=== PATIENT | male | born 1950 | race Caucasian/White ===

== ENCOUNTER 2018-07-15 18:12 | Observation (INO) | payer BC, MEDICARE, OTHER ==
[~2018-07-15] VITALS: Ht 165.1 cm; Wt 102.1 kg
[2018-07-15 19:30] VITALS: BP 173/82
--- NOTE | 2018-07-15 19:30 | NUR ---
SANDEEP PUENTE admitted to room 429-1, with an admitting diagnosis of SBO, on 07/15/18 from [facility] via [facility], accompanied by EMS.SANDEEP PUENTE introduced to surroundings, call light, bed controls, phone, TV, temperature control, lights, meal times, smoking policy, visitor policy, side rail policy, bathrooms and showers. Patient Rights given to patient in the handbook. SANDEEP PUENTE verbalizes understanding that [facility] is not responsible for the loss or damage to any personal effects or valuables that are kept in the patients posession during their hospitalization.
--- NOTE | 2018-07-15 19:50 | NUR ---
DR. HERRERA CALLED AND INFORMED DA IS ON FLOOR. NEW ORDERS RECEIVED.
[2018-07-15] MEDS ORDERED: ONDANSETRON 4 MG/2 ML (SDV) Z0FRAN IVP PRN (20:00)
--- NOTE | 2018-07-15 20:00 | NUR ---
DR. AZUL CALLED AND INFORMED OF PT B/P. NO NEW ORDERS.
[2018-07-15] MEDS: LACTATED RINGERS 1,000 ML IV SCH (20:34)
[2018-07-15] MEDS: morphine INJ 4 MG/ML 1 ML (VIAL/SYRINGE) IVP PRN ×2 (20:34→23:52)
[2018-07-15 23:06] VITALS: BP 173/82
[2018-07-16] VITALS: BP 150/69
[2018-07-16 04:00] VITALS: BP 125/62
[2018-07-16] MEDS: LACTATED RINGERS 1,000 ML IV SCH ×3 (04:34→20:05)
[2018-07-16 05:46] LABS: BASOPHILS # (AUTO) 0.1 10^3/uL (0.0-0.1); BASOPHILS % (AUTO) 1 % (0-10); EOSINOPHILS # (AUTO) 0.2 10^3/uL (0.0-0.3); EOSINOPHILS % (AUTO) 2 % (0-10); HEMATOCRIT 38 % (40-54); HEMOGLOBIN 12.8 G/DL (13.3-17.7); LYMPHOCYTES # (AUTO) 2.3 X 10^3 (1.0-4.0); LYMPHOCYTES % (AUTO) 30 % (12-44); MEAN CORPUSCULAR HEMOGLOBIN 30 PG (25-34); MEAN CORPUSCULAR HGB CONC 34 G/DL (32-36); MEAN CORPUSCULAR VOLUME 90 FL (80-99); MEAN PLATELET VOLUME 10.3 FL (7.4-10.4); MONOCYTES # (AUTO) 0.8 X 10^3 (0.0-1.0); MONOCYTES % (AUTO) 11 % (0-12); NEUTROPHILS # (AUTO) 4.2 X 10^3 (1.8-7.8); NEUTROPHILS % (AUTO) 56 % (42-75); PLATELET COUNT 310 10^3/uL (130-400); RED CELL DISTRIBUTION WIDTH 13.2 % (10.0-14.5); WHITE BLOOD COUNT 7.6 10^3/uL (4.3-11.0)
[2018-07-16 06:09] LABS: BUN/CREATININE RATIO 12; CALCIUM 9.4 MG/DL (8.5-10.1); CARBON DIOXIDE 25 MMOL/L (21-32); CHLORIDE 105 MMOL/L (98-107); CREATININE SERUM 0.75 MG/DL (0.60-1.30); GFR ESTIMATED > 60; GLUCOSE 95 MG/DL (70-105); POTASSIUM 3.6 MMOL/L (3.6-5.0); SODIUM 140 MMOL/L (135-145)
[2018-07-16 08:00] VITALS: BP 140/63
--- NOTE | 2018-07-16 08:05 | NUR ---
MS 2MG IV FOR ABD PAIN 11/11.
[2018-07-16] MEDS: morphine INJ 4 MG/ML 1 ML (VIAL/SYRINGE) IVP PRN ×2 (08:08→22:53)
--- NOTE | 2018-07-16 08:42 | History & Physical-Surgical ---
History of Present Illness History of Present Illness Reason for visit/HPI CC: high blood pressure abdominal pain Patient is a 68-year-old male with history of gastric bypass who was checking his blood pressure approximately every 30 minutes and was found it to be elevated. Patient went to the [place] emergency department for further evaluation because of this. Patient was concerned about his blood pressure was primary concern but he also is having some left lower quadrant abdominal pain. Patient states she's been having it for about the last day or so aching twisting type pain that he states that it is approximately 8 out of 10. No radiation of the pain. Patient states that he gets the same pain on and off for several years and he states that he attributes it to IBS. Patient states that he does have issues with constipation and bowel movements therefore he tries to stay as active as possible both biking and walking. With his gastric bypass he had approximately 10 years ago he's lost 100 pounds initially and has gained back approximately 20 pounds. Patient states that nothing was seems to make the pain worsening. Nothing was seems to make better except for the ambulating. patient states that he is passing a very small amount of flatus. Last bowel movement was in the day. Patient had a CT scan back on his hospital which was suggestive of partial small bowel obstruction without evidence of transition point. Patient was sent here for further surgical evaluation.he currently denies any nausea vomiting fever sweats chills shortness of breath or chest pain. Date of Admission Jul 15, 2018 at 19:40 Date Seen by a Provider: Jul 16, 2018 Time Seen by a Provider: 08:22 I consulted on this patient on 07/16/18 08:42 Attending Physician Lois Aj DO Admitting Physician Jania Ingram MD Consult Allergies and Home Medications Allergies Coded Allergies: Influenza Virus Vaccines (Verified Allergy, Unknown, 07/15/18) NSAIDS (Non-Steroidal Anti-Inflamma (Verified Allergy, Unknown, 07/15/18) Penicillins (Verified Allergy, Unknown, 07/15/18) Sulfa (Sulfonamide Antibiotics) (Verified Allergy, Unknown, 07/15/18) metronidazole (Verified Allergy, Unknown, 07/15/18) tetracycline (Verified Allergy, Unknown, 07/15/18) Home Medications Amlodipine Besylate 10 Mg Tablet, 5 MG PO HS, (Reported) TAKES 1/2 (10MG) TABLET Amlodipine Besylate 10 Mg Tablet, 5 MG PO BID PRN for BP>140/90, (Reported) Atorvastatin Calcium 20 Mg Tablet, 10 MG PO HS, (Reported) TAKES 1/2 (20MG) TABLET Calcium Citrate/Vitamin D3 1 Each Tablet, 1 TAB PO 1200, (Reported) Cetirizine HCl 10 Mg Tablet, 10 MG PO DAILY, (Reported) Cyanocobalamin (Vitamin B-12) 500 Mcg Tablet, 500 MCG PO DAILY, (Reported) Dicyclomine HCl 10 Mg Capsule, 10 MG PO QID, (Reported) Finasteride 5 Mg Tablet, 2.5 MG PO HS, (Reported) TAKES 1/2 (5MG) TABLET Flaxseed Oil 1,000 Mg Capsule, 1,000 MG PO HS, (Reported) Fluticasone Propionate 16 Gm [place].susp, 2 SPRAYS NS DAILY, (Reported) L.acidoph & Paracasei,B.lactis 1 Each Capsule, 1 CAP PO 1200, (Reported) Lisinopril 20 Mg Tablet, 20 MG PO DAILY, (Reported) Lisinopril 20 Mg Tablet, 10 MG PO HS, (Reported) TAKES 1/2 (20MG) TABLET Mv,Minerals/FA/Lycopene/Ginkgo 1 Each Tablet, 0.5 TAB PO 0800,1200, (Reported) Omeprazole 20 Mg Capsule.dr, 20 MG PO HS, (Reported) Ranitidine HCl 150 Mg Tablet, 150 MG PO DAILY, (Reported) [place] Oil/[place]-3 Fatty Acids 1 Each Capsule, 1,000 MG PO 1200, (Reported) Tamsulosin HCl 0.4 Mg Cap, 0.4 MG PO 1200, (Reported) Triamterene/Hydrochlorothiazid 1 Each Tablet, 1 TAB PO DAILY, (Reported) Vitamin E Mixed 400 Unit Tablet, 400 UNIT PO DAILY, (Reported) [Bariatric Vitamin] , 1 TAB PO HS, (Reported) Patient Home Medication List Home Medication List Reviewed: Yes Past Ynarnnp-Ogdaoh-Iwfgvx Hx Patient Social History Alcohol Use: Occasionally Uses Number of Drinks Today: 7 Recreational Drug Use: No Recent Foreign Travel: No Contact w/Someone Who Travel: No Recent Infectious Disease Expo: No Recent Hopitalizations: No Physical Abuse Screen: No Sexual Abuse: No Immunizations Up To Date Date of Pneumonia Vaccine: Feb 14, 2018 Seasonal Allergies Seasonal Allergies: No Surgeries History of Surgeries: Yes (GASTRIC BYPASS) Respiratory History of Respiratory Disorde: No Cardiovascular History of Cardiac Disorders: Yes Neurological History of Neurological Disord: No Reproductive System Sexually Transmitted Disease: No HIV/AIDS: No Genitourinary History of Genitourinary Disor: Yes Genitourinary Disorders: Benign Prostatic Hyperpl Gastrointestinal History of Gastrointestinal Di: Yes Gastrointestinal Disorders: Gastroesophageal Reflux, Diverticulosis, Irritable Bowel Musculoskeletal History of Musculoskeletal Dis: Yes Musculoskeletal Disorders: Arthritis Endocrine History of Endocrine Disorders: No HEENT History of HEENT Disorders: Yes Hearing Impairment: Hard of Hearing Cancer History of Cancer: No Psychosocial History of Psychiatric Problem: Yes Behavioral Health Disorders: Anxiety Integumentary History of Skin or Integumenta: No Blood Transfusions History of Blood Disorders: No Adverse Reaction to a Blood Tr: No Family Medical History Significant Family History: No Pertinent Family Hx Review of Systems Constitutional: no symptoms reported EENTM: no symptoms reported Respiratory: no symptoms reported Cardiovascular: no symptoms reported Gastrointestinal: see HPI Genitourinary: no symptoms reported Musculoskeletal: no symptoms reported Skin: no symptoms reported Psychiatric/Neurological: No Symptoms Reported Physical Exam Vital Signs Vital Signs - First Documented 07/15/18 19:30 Temp 97.4 Pulse 81 Resp 18 B/P (MAP) 173/82 (112) Pulse Ox 96 O2 Delivery Room Air Capillary Refill : Less Than 3 Seconds Height, Weight, BMI Height: 5'5.00" Weight: 225lbs. 0.0oz. 102.334265pi; 37.4 BMI Method: General Appearance: No Apparent Distress HEENT: PERRL/EOMI, Normal ENT Inspection Neck: Full Range of Motion, Normal Inspection, Non Tender, Supple Respiratory: Chest Non Tender, No Accessory Muscle Use, No Respiratory Distress Cardiovascular: Regular Rate, Rhythm Gastrointestinal: Soft, Tenderness (minimal tenderness left lower quadrant no palpable masses) Rectal: Deferred Back: Normal Inspection, No CVA Tenderness Extremity: Normal Inspection, Non Tender, No Calf Tenderness Neurologic/Psychiatric: Alert, Oriented x3, No Motor/Sensory Deficits, Normal Mood/Affect, emergency department director II-XII Norm as Tested Skin: Normal Color, Warm/Dry Lymphatic: No Adenopathy Data Review Labs Laboratory Tests 07/16/18 05:05: White Blood Count 7.6, Red Blood Count 4.23L, Hemoglobin 12.8L, Hematocrit 38L, Mean Corpuscular Volume 90, Mean Corpuscular Hemoglobin 30, Mean Corpuscular Hemoglobin Concent 34, Red Cell Distribution Width 13.2, Platelet Count 310, Mean Platelet Volume 10.3, Neutrophils (%) (Auto) 56, Lymphocytes (%) (Auto) 30 , Monocytes (%) (Auto) 11, Eosinophils (%) (Auto) 2, Basophils (%) (Auto) 1, Neutrophils # (Auto) 4.2, Lymphocytes # (Auto) 2.3, Monocytes # (Auto) 0.8, Eosinophils # (Auto) 0.2, Basophils # (Auto) 0.1, Sodium Level 140, Potassium Level 3.6, Chloride Level 105, Carbon Dioxide Level 25, Anion Gap 10, Blood Urea Nitrogen 9, Creatinine 0.75, Estimat Glomerular Filtration Rate > 60, BUN/ Creatinine Ratio 12, Glucose Level 95, Calcium Level 9.4 Assessment/Plan Assessment/Plan Admission Diagonsis Left lower quadrant abdominal pain Partial small bowel obstruction Hypertension History of gastric bypass Patient is a 68-year-old male who suffered further surgical evaluation. And patient has been more hypertensive than usual for him. We'll consult Dr. Samuel for medical management. Patient nothing by mouth and having small bowel follow-through this morning for further evaluation of partial small bowel obstruction Small bowel follow-through this morning. Small bowel follow-through was performed not demonstrating any evidence obstruction. We'll start on clear liquids and see how he tolerates. If continues to improve we'll plan on likely discharge home tomorrow. Admission Status: Observation Assessment/Plan Left lower quadrant abdominal pain Partial small bowel obstruction Hypertension History of gastric bypass Patient is a 68-year-old male who suffered further surgical evaluation. And patient has been more hypertensive than usual for him. We'll consult Dr. Samuel for medical management. Patient nothing by mouth and having small bowel follow-through this morning for further evaluation of partial small bowel obstruction Small bowel follow-through this morning. Small bowel follow-through was performed not demonstrating any evidence obstruction. We'll start on clear liquids and see how he tolerates. If continues to improve we'll plan on likely discharge home tomorrow. Clinical Quality Measures DVT/VTE Risk/Contraindication: Risk Factor Score Per Nursin RFS Level Per Nursing on Admit: 3=High LOIS AJ DO Jul 16, 2018 08:42
[2018-07-16] MEDS ORDERED: OMEP20CA12 PO (08:54)
[2018-07-16] MEDS ORDERED: FINA5TAB6 PO (08:54)
[2018-07-16] MEDS ORDERED: MV,M1TAB4 PO (08:54)
[2018-07-16] MEDS ORDERED: ATOR20TA66 PO (08:54)
[2018-07-16] MEDS ORDERED: AMLO10TA7 PO ×2 (08:54)
[2018-07-16] MEDS ORDERED: SALM1CAP4 PO (08:54)
[2018-07-16] MEDS ORDERED: CALC-787 PO (08:54)
[2018-07-16] MEDS ORDERED: VITA400T9 PO (08:54)
[2018-07-16] MEDS ORDERED: TAMS0.4C98 PO (08:54)
[2018-07-16] MEDS ORDERED: FLAX10004 PO (08:54)
[2018-07-16] MEDS ORDERED: FLUT16SP22 NS (08:54)
[2018-07-16] MEDS ORDERED: TRIA1TAB3 PO (08:54)
[2018-07-16] MEDS ORDERED: BARIATRIC VITAMIN PO (08:54)
[2018-07-16] MEDS ORDERED: RANI150T11 PO (08:54)
[2018-07-16] MEDS ORDERED: L.AC1CAP6 PO (08:54)
[2018-07-16] MEDS ORDERED: CETI10TA20 PO (08:54)
[2018-07-16] MEDS ORDERED: LISI-552 PO ×2 (08:54)
[2018-07-16] MEDS ORDERED: DICY10CA12 PO (08:54)
[2018-07-16] MEDS ORDERED: CYAN500T2 PO (08:54)
--- NOTE | 2018-07-16 08:58 | NUR ---
SPOKE WITH THE PATIENT ABOUT HIS MEDICATIONS. HE HAD A DETAILED LIST WITH HIM AND I COMPARED WITH THE EXT MED HX. HIS FINASTERIDE 5MG IS WRITTEN 1 DAILY HOWEVER HE TAKES 1/2 TAB HS. HIS OMEPRAZOLE IS WRITTEN BID HOWEVER HE TAKES ONE AT HS HIS RANITIDINE IS WRITTEN BID HOWEVER HE TAKES ONE EVERY MORNING HE TAKES THE FOLLOWING OTC: BARIATRIC VITAMIN HS CALCIUM CITRATE NOON ZYRTEC 10MG DAILY B12 DAILY FLAXSEED OIL HS PROBIOTIC NOON MTV 1/2 BID SALMON OIL NOON VITAMIN E DAILY
[2018-07-16] MEDS ORDERED: DIATRIZOATE MEGLUM/SODIUM 37% 120 ML (GASTROGRAFIN) PO ONE (09:45)
[2018-07-16 12:00] VITALS: BP 172/88
--- NOTE | 2018-07-16 12:35 | Diagnostic Imaging Report ---
INDICATION: Outside CT one day earlier demonstrating small bowel obstruction. Study is performed for further evaluation. CORRELATION is made with outside CT from 07/15/2018 TECHNIQUE: The patient drank 120 mL of Gastroview contrast mixed with 120 mL of water and serial radiography of the abdomen was performed. FINDINGS: Preliminary radiograph of the abdomen shows mildly prominent small bowel loops in the left upper quadrant. These are nonspecific. Initial radiograph demonstrates postop changes of gastric bypass. The residual stomach is small in size. There is prompt emptying into small bowel loops. There appears to be normal transit of contrast through the small bowel to the right colon. Contrast is seen reaching the right colon at approximately 1 hour, 30 minutes. No obstruction is identified. Mucosal fold pattern is unremarkable. IMPRESSION: No evidence of small bowel obstruction. Dictated by: Dictated on workstation # [id number]
[2018-07-16] MEDS ORDERED: ENALAPRILAT 2.5 MG/2 ML (VASOTEC) VIAL IV PRN (13:00)
--- NOTE | 2018-07-16 13:15 | NUR ---
VASOTEC IV FOR ELEVATED B/P. CLEAR LIQUIDS STARTED PER PT REQUEST.
--- NOTE | 2018-07-16 13:44 | Consultation-Hospitalist ---
HPI History of Present Illness: HPI/Chief Complaint Pt is a 68yoCM with a PMH of gastric bypass, BPH, and HTN who presented to outside ER for evaluation of elevated blood pressure and was incidentally found to have SBO on CT Abd. He is admitted for surgical services and I am consulted for medical management. He reports he was checking his blood pressure at home roughly every 30 minutes because it was reading the 150s systolically. He took he prn amlodipine but it remained in the 150s. He states he was worried he was going to have a stroke because Magdi Ray just of a massive stroke so he presented to the ER for evaluation. He also complained of some left sided abdominal pain and a CT abd was done and revealed an SBO. He was admitted here for surgical evaluation. Source: patient Exam Limitations: no limitations Date Seen 07/16/18 Attending Physician Akash Aj DO PCP Jania Ingram MD Referring Physician Date of Admission Jul 15, 2018 at 19:40 Home Medications & Allergies Home Medications Reviewed patient Home Medication Reconciliation performed by pharmacy medication reconciliations restoration technician and/or nursing. Patients Allergies have been reviewed. Allergies Allergies Coded Allergies Influenza Virus Vaccines (Verified Allergy, Unknown, 07/15/18) NSAIDS (Non-Steroidal Anti-Inflamma (Verified Allergy, Unknown, 07/15/18) Penicillins (Verified Allergy, Unknown, 07/15/18) Sulfa (Sulfonamide Antibiotics) (Verified Allergy, Unknown, 07/15/18) metronidazole (Verified Allergy, Unknown, 07/15/18) tetracycline (Verified Allergy, Unknown, 07/15/18) Past Bmtqyas-Rmcfzc-Yvfoyt Hx Past Med/Social Hx: Reviewed Nursing Past Med/Soc Hx Patient Social History Alcohol Use: Occasionally Uses Alcohol Beverage of Choice: Beer Recreational Drug Use: No Physical Abuse Screen: No Sexual Abuse: No Recent Foreign Travel: No Contact w/other who traveled: No Recent Hopitalizations: No Recent Infectious Disease Expo: No Immunizations Up To Date Date of Pneumonia Vaccine: Feb 14, 2018 Seasonal Allergies Seasonal Allergies: No Past Medical History Surgeries: Abdominal (gastric bypass) Cardiac: Hypertension Sexually Transmitted Disease: No HIV/AIDS: No Genitourinary: Benign Prostatic Hyperpl Gastrointestinal: Gastroesophageal Reflux, Diverticulosis, Irritable Bowel Musculoskeletal: Arthritis Hearing Impairment: Hard of Hearing Psychosocial: Anxiety History of Blood Disorders: No Adverse Reaction to Blood Curry: No Family History Reviewed Nursing Family Hx No Pertinent Family Hx Review of Systems Constitutional: No chills, No fever Respiratory: No dyspnea on exertion, No short of breath Gastrointestinal: abdominal pain, diarrhea Genitourinary: no symptoms reported Musculoskeletal: no symptoms reported Skin: no symptoms reported Psychiatric/Neurological: Denies Headache, Denies Weakness Physical Exam Physical Exam Vital Signs Vital Signs - First Documented 07/15/18 19:30 Temp 97.4 Pulse 81 Resp 18 B/P (MAP) 173/82 (112) Pulse Ox 96 O2 Delivery Room Air Capillary Refill : Less Than 3 Seconds Height, Weight, BMI Height: 5'5.00" Weight: 225lbs. 0.0oz. 102.285609ph; 37.4 BMI Method: General Appearance: No Apparent Distress, WD/WN, Obese Respiratory: Lungs Clear, No Accessory Muscle Use, No Respiratory Distress Cardiovascular: Regular Rate, Rhythm, No Murmur Gastrointestinal: Normal Bowel Sounds, Non Tender, Soft Extremity: No Calf Tenderness, No Pedal Edema Neurologic/Psychiatric: Alert, Oriented x3, Normal Mood/Affect Results Results/Procedures Labs Laboratory Tests 07/16/18 05:05 Patient resulted labs reviewed. Imaging: Reviewed Imaging Report Assessment/Plan Assessment and Plan Assess & Plan/Chief Complaint SBO Diagnosis/Problems Diagnosis/Problems (1) Small bowel obstruction Assessment & Plan: Management per Surgery Small bowel follow through done- results pending Advanced to [facility] today (2) Essential (primary) hypertension Assessment & Plan: BP mildly elevated this AM Will give Vasotec IV x1 Resume home medications Advised to check less often than every 30 minutes when home Stable for DC from medical standpoint Clinical Quality Measures DVT/VTE Risk/Contraindication: Risk Factor Score Per Nursin RFS Level Per Nursing on Admit: 3=High ARIANA FINN MD Jul 16, 2018 13:44
[2018-07-16 16:02] VITALS: BP 169/90
[2018-07-16] MEDS: DICYCLOMINE 10 MG (BENTYL) CAP PO SCH ×2 (17:10→20:06)
[2018-07-16 20:25] VITALS: BP 140/92
[2018-07-16] MEDS ORDERED: lisINopril 10 MG (PRINIVIL) TABLET PO SCH (21:00)
[2018-07-16] MEDS ORDERED: amLODIPine 5 MG (NORVASC) TAB PO SCH (21:00)
[2018-07-16] MEDS ORDERED: ATORVASTATIN 10 MG (LIPITOR) TABLET PO SCH (21:00)
[2018-07-16] MEDS ORDERED: FINASTERIDE (PROSCAR) 5 MG TAB PO SCH (21:00)
[2018-07-16] MEDS ORDERED: PANTOPRAZOLE 20 MG TABLET (PROTONIX) PO SCH (21:00)
[2018-07-17 00:16] VITALS: BP 163/85
[2018-07-17] MEDS: LACTATED RINGERS 1,000 ML IV SCH (04:04)
[2018-07-17] MEDS: morphine INJ 4 MG/ML 1 ML (VIAL/SYRINGE) IVP PRN (04:18)
[2018-07-17 04:30] VITALS: BP 158/82
[2018-07-17 08:00] VITALS: BP 160/78
[2018-07-17] MEDS: DICYCLOMINE 10 MG (BENTYL) CAP PO SCH ×2 (08:49→13:43)
[2018-07-17] MEDS ORDERED: TRIAMTERENE/HCTZ 75-50 (MAXZIDE,DYAZIDE) TABLET PO SCH (09:00)
[2018-07-17] MEDS ORDERED: LORATADINE (CLARITIN) 10 MG TAB PO SCH (09:00)
[2018-07-17] MEDS ORDERED: FLUTICASONE NASAL SPRAY (FLONASE) 16 GM BTL NS SCH (09:00)
[2018-07-17] MEDS ORDERED: lisINopril 20 MG (PRINIVIL) TABLET PO SCH (09:00)
[2018-07-17] MEDS ORDERED: FAMOTIDINE 20 MG (PEPCID) TABLET PO SCH (09:00)
[2018-07-17] MEDS ORDERED: TAMSULOSIN 0.4 MG (FLOMAX) CAP PO SCH (12:00)
--- NOTE | 2018-07-17 12:07 | Discharge Inst-Simple/Standard ---
Discharge Inst-Standard Discharge Medications New, Converted or Re-Newed RX: RX on Chart Patient Instructions/Follow Up Plan of Care/Instructions/FU: Follow up with your regular physician in 1 week. Follow up with Dr. Aj on as needed basis. Activity as Tolerated: Yes Discharge Diet: Regular Diet Other Inst to Patient Follow up Appt: Make appointment for 1 week with you regular physician. Follow up with Dr. Aj on as needed basis. Symptoms to Report: Appetite Changes, Extremity Discoloration, Numbness/Tingling, Swelling Increased , Bleeding Excessive, Eyesight Changes, Pain Increased, Urine Color Change, Constipation(Persistent), Fever over 101 degree F, Pain/Pressure in chest, Urinating Difficulty, Cough Up/Vomit Blood, Heart Beat Irreg/Pounding, Pain/ Pressure in jaw, Vaginal Bleeding Increase, Cramps in feet or legs, Lightheadedness, Pain/Pressure in shoulder, Diarrhea(Persistent), Memory Changes Suddenly, Questions/Concerns, Weight gain consecutive days, Dizziness/ Fainting, Nausea/Vomiting, Shortness of Breath, Weight gain over 2 pounds If questions or concerns contact your physician Or seek help at emergency department. LOIS AJ DO Jul 17, 2018 12:07
--- NOTE | 2018-07-17 13:44 | NUR ---
SANDEEP PUENTE demonstrates understanding of discharge instructions and accurately returns instructions upon questioning. Copy of Post-Discharge Instructions given to pt. SANDEEP PUENTE is able to manage continuing needs after discharge. Patients belongings returned to . Patient discharged from [facility] on 07-17-18 at 1445. SANDEEP PUENTE left floor via , accompanied by .
--- NOTE | 2018-07-17 16:14 | Progress Note ---
Subjective Date Seen by a Provider: Jul 17, 2018 Time Seen by a Provider: 09:40 Subjective/Events-last exam patient not having any abdominal pain. Had multiple bowel movements. Patient tolerating liquid diet. Patient not having any nausea vomiting fever sweats chills shortness of breath or chest pain. Small bowel follow through no evidence of any obstruction. Objective Exam Vital Signs Date Time Temp Pulse Resp B/P (MAP) Pulse Ox O2 Delivery O2 Flow Rate FiO2 07/17/18 08:00 Room Air 07/17/18 08:00 98.4 61 16 160/78 (105) 98 Room Air 07/17/18 04:30 97.9 52 20 158/82 (107) 95 Room Air 07/17/18 00:16 97.5 61 20 163/85 (111) 94 Room Air 07/16/18 20:25 97.3 62 20 140/92 (108) 96 Room Air 07/16/18 20:00 Room Air I & O 07/17/18 07:00 Intake Total 1950 ml Output Total 1600 ml Balance 350 ml Capillary Refill : Less Than 3 Seconds General Appearance: No Apparent Distress HEENT: PERRL/EOMI, Normal ENT Inspection Neck: Full Range of Motion, Normal Inspection, Non Tender, Supple Respiratory: Chest Non Tender, No Accessory Muscle Use, No Respiratory Distress Cardiovascular: Regular Rate, Rhythm Gastrointestinal: non tender, soft, no organomegaly Extremity: Normal Inspection, Non Tender, No Calf Tenderness Neurologic/Psychiatric: Alert, Oriented x3, No Motor/Sensory Deficits, Normal Mood/Affect, continuous pickling line pickler II-XII Norm as Tested Skin: Normal Color, Warm/Dry Lymphatic: No Adenopathy Assessment/Plan Assessment/Plan Assessment/Plan Left lower quadrant abdominal pain Partial small bowel obstruction Hypertension History of gastric bypass patient tolerating clears, we will advance diet Hypertension continue on current medications. Patient follow-up with his primary physician in one week patient encouraged to continue increased activity. Any worsening change in condition should be reevaluated. Final Diagnosis Left lower quadrant abdominal pain Partial small bowel obstruction Hypertension History of gastric bypass Clinical Quality Measures DVT/VTE Risk/Contraindication: Risk Factor Score Per Nursin RFS Level Per Nursing on Admit: 3=High LOIS HERRERA DO Jul 17, 2018 16:14
== END 2018-07-17 13:51 | disposition home or self-care (01) ==
LOC: 4TH 19:40 → INTOOBSV 19:40
PROVIDERS: ADMIT Surgery; ATTEND Surgery
DX: K56.609 Unspecified intestinal obstruction, unspecified as to partial versus complete obstruction (principal); I10 Essential (primary) hypertension; Z98.84 Bariatric surgery status; Z88.0 Allergy status to penicillin; Z88.2 Allergy status to sulfonamides; N40.0 Benign prostatic hyperplasia without lower urinary tract symptoms; K21.9 Gastro-esophageal reflux disease without esophagitis; K57.30 Diverticulosis of large intestine without perforation or abscess without bleeding; M19.91 Primary osteoarthritis, unspecified site; H91.90 Unspecified hearing loss, unspecified ear; F41.9 Anxiety disorder, unspecified
CPT/HCPCS: 36415; 74250; 80048; 85025; 99211; G0378

== ENCOUNTER → 2020-09-27 | Outpatient (CLI) | payer BC ==
[~2020-09-27] MED LIST: AMLO-251 PO; ATOR20TA66 PO; BARIATRIC VITAMIN PO; CALC-787 PO; CETI10TA49 PO; CYAN500T8 PO; DICY10CA12 PO; FINA5TAB6 PO; FLAX10004 PO; FLUT16SP22 NS; L.AC1CAP6 PO; LISI20TA26 PO; MV,M1TAB4 PO; OMEP20CA18 PO; RANI150T11 PO; SALM1CAP4 PO; TMSL.4C PO; TRIA1TAB3 PO; VITA400T9 PO
--- NOTE | 2020-09-27 15:46 | Diagnostic Imaging Report ---
INDICATION: Low back pain and pelvic pain, fall. TIME OF EXAM: 2:42 PM. FINDINGS: The curvature of the lumbar spine is normal. There is grade 1-2 spondylolisthesis of L5 on S1. The vertebral body heights are maintained. No acute compression fracture is seen. There is multilevel degenerative disc disease with variable disc space narrowing and marginal spurring, greatest at the L4-L5 and L5-S1 levels. There are some atherosclerotic calcifications in the abdominal aorta. IMPRESSION: Lumbar spondylosis and spondylolisthesis. No acute compression fracture is detected. Dictated by: Dictated on workstation # [id number]
--- NOTE | 2020-09-27 15:48 | Diagnostic Imaging Report ---
INDICATION: Pelvic pain, fall. TIME OF EXAM: 2:43 PM. FINDINGS: A single frontal view of the pelvis shows normal femoroacetabular alignment bilaterally. Both joint spaces are well maintained. Femoral heads and necks are intact. Rami are intact. No fractures are seen. IMPRESSION: No acute bony abnormality is detected. Dictated by: Dictated on workstation # [id number]
== END ==
LOC: RAD 14:23
PROVIDERS: ATTEND Chiropractor
DX: M47.816 Spondylosis without myelopathy or radiculopathy, lumbar region (principal); M43.16 Spondylolisthesis, lumbar region; R10.2 Pelvic and perineal pain; W19.XXXA Unspecified fall, initial encounter
CPT/HCPCS: 72100; 72170